=== PATIENT | female | born 1980 | race Hispanic/Latino ===

== ENCOUNTER 2017-07-03 06:27 | Observation (INO) | payer SELFPAY ==
[2017-07-03 06:54] VITALS: RESP 16; TEMP 98.7
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
[2017-07-03] MEDS ORDERED: Epinephrine /Lidocaine HCL 1:100,000/2% 30 ml INJ ONE (07:45)
[2017-07-03] MEDS ORDERED: Lidocaine 2% w Epi 1:100,000 Inj IJ ONE (08:09)
[2017-07-03] MEDS ORDERED: Bacitracin 500 Units/gm Oint Foilpak UD ONE (09:05)
[2017-07-03 10:00] VITALS: BP 108/72; PULSE 84; O2SAT 99
== END 2017-07-03 09:50 | disposition home or self-care (01) ==
LOC: C.ER 06:27 → C.9OBSV 07:00
PROVIDERS: ADMIT Emergency Medicine; ATTEND Emergency Medicine
DX: F10.129 Alcohol abuse with intoxication, unspecified (principal); Y90.9 Presence of alcohol in blood, level not specified; S61.412A Laceration without foreign body of left hand, initial encounter; X58.XXXA Exposure to other specified factors, initial encounter
CPT/HCPCS: 12001; G0378